=== PATIENT | female | born 2000 | race Two or more races ===

== ENCOUNTER 2023-03-27 03:08 | Emergency (ER) | payer OTHER ==
[~2023-03-27] VITALS: Ht 160 cm; Wt 43.1 kg
== END 2023-03-27 07:46 | disposition home or self-care (01) ==
LOC: ER 03:08
DX: S01.80XA Unspecified open wound of other part of head, initial encounter (principal); W19.XXXA Unspecified fall, initial encounter; Y93.89 Activity, other specified; Y92.89 Other specified places as the place of occurrence of the external cause; Y99.8 Other external cause status
CPT/HCPCS: 12011; 90471; 90714; 96372; 99282; J0690; J1670